=== PATIENT | female | born 2000 | race Caucasian/White ===

== ENCOUNTER 2018-07-29 19:05 | Emergency (ER) | payer OTHER ==
[~2018-07-29] VITALS: Ht 165.1 cm; Wt 53.5 kg
[~2018-07-29 19:05] MED LIST: AUGMENTIN ES-6050 ML PO; CLARITIN5 MG/5 ML PO
== END 2018-07-29 19:56 | disposition home or self-care (01) ==
LOC: ED 19:05
DX: R59.1 Generalized enlarged lymph nodes (principal)

== ENCOUNTER 2018-07-29 22:27 | Emergency (ER) | payer OTHER | END 2018-07-29 23:20 | disposition home or self-care (01) | LOC: ED 22:27 | DX: R59.1 Generalized enlarged lymph nodes (principal) ==

== ENCOUNTER 2023-01-09 19:50 | Emergency (ER) | payer OTHER ==
[~2023-01-09] VITALS: Ht 165.1 cm; Wt 46.0 kg
[2023-01-09] MEDS ORDERED: AMOX-CLAV 875-1 EACH PO (21:16)
== END 2023-01-09 21:48 | disposition home or self-care (01) ==
LOC: ED 19:50
DX: K04.7 Periapical abscess without sinus (principal)

== ENCOUNTER 2023-09-03 12:42 | Emergency (ER) | payer SELFPAY ==
[~2023-09-03] VITALS: Ht 165.1 cm; Wt 48.5 kg
[~2023-09-03 12:42] MED LIST changes: +AMOX-CLAV 875-1 EACH PO
[2023-09-03] MEDS ORDERED: Ondansetron Hydrochloride 4 MG/2 ML VIAL IV ONE (13:00)
[2023-09-03] MEDS ORDERED: SODIUM CHLORIDE 0.9% 1,000 ML IV ONE (13:00)
[2023-09-03 13:20] LABS: HEMATOCRIT 40.9 % (37.0-47.0); MEAN CELL VOLUME 90.7 fl (81.0-99.0); MEAN CORPUSCULAR HGB 30.8 pg (27.0-31.0); MEAN PLATELET VOLUME 9.9 fl (9.6-12.3); PLATELET COUNT AUTOMATED 342 10*3/uL (130-400); RED BLOOD COUNT 4.51 10*6/uL (4.10-5.10); RED CELL DISTRI WIDTH 12.7 % (0-14.5); WHITE BLOOD COUNT 16.2 10*3/uL (4.8-10.8)
[2023-09-03 13:21] LABS: MANUAL DIFF REFLEX YES
[2023-09-03] MEDS ORDERED: IOHEXOL 300 MG/ML 100 ML VIAL ONE (13:36)
[2023-09-03 13:40] LABS: PLATELET SUFFICIENCY NORMAL (NORMAL); TOTAL CELLS COUNTED 100 #CELLS; VACUOLATION OF NEUTROPHILS SLIGHT
[2023-09-03 13:46] LABS: BILIRUBIN Negative (Negative); BLOOD 2+ (Negative); CLARITY Clear (Clear); COLOR Yellow (Yellow); GLUCOSE Negative (Negative); KETONE 3+ (Negative); LEUKO ESTERASE Negative (Negative); NITRITE Negative (Negative); PH 5.5 (4.5-8.0); SPECIFIC GRAVITY >= 1.030 (1.001-1.030)
[2023-09-03 13:48] LABS: ALKALINE PHOSPHATASE 56 U/L (46-116); BUN 15 mg/dl (9-23); CHLORIDE 100 mmol/L (98-107); LIPASE 35 U/L (12-53); POTASSIUM 3.9 mmol/L (3.4-5.1); SGPT/ALT 23 U/L (5-49); TOTAL PROTEIN 8.6 gm/dL (6.0-8.0)
[2023-09-03] MEDS ORDERED: IOHEXOL 300 MG/ML 100 ML VIAL IV ONE (13:50)
[2023-09-03 14:09] LABS: BACTERIA TRACE; EPITHELIAL CELLS 16-20; MUCOUS 1+
[2023-09-03] MEDS ORDERED: ONDANSETRON4 MG SL (15:35)
== END 2023-09-03 15:38 | disposition home or self-care (01) ==
LOC: ED 12:42
PROVIDERS: Physician Assistant Medical
DX: A08.4 Viral intestinal infection, unspecified (principal); Z20.822 Contact with and (suspected) exposure to COVID-19; R11.2 Nausea with vomiting, unspecified; R19.7 Diarrhea, unspecified

== ENCOUNTER 2024-07-23 12:27 | Emergency (ER) | payer BC, MEDICAID ==
[~2024-07-23] VITALS: Ht 165.1 cm; Wt 53.1 kg
[~2024-07-23 12:27] MED LIST changes: +ONDANSETRON4 MG SL
[2024-07-23] MEDS ORDERED: Ondansetron Hydrochloride 4 MG/2 ML VIAL IV ONE (12:50)
[2024-07-23] MEDS ORDERED: SODIUM CHLORIDE 0.9% 1,000 ML IV ONE (12:50)
[2024-07-23 13:00] LABS: BASO % 0.6 % (0.0-1.0); EOS % 0.1 % (1.0-4.0); HEMATOCRIT 40.5 % (37.0-47.0); MEAN CORPUSCULAR HGB 30.9 pg (27.0-31.0); MEAN CORPUSCULAR HGB CONC 35.1 g/dl (33.0-37.0); MEAN PLATELET VOLUME 9.7 fl (9.6-12.3); MONO # 0.5 10*3/uL (0.1-1.0); MONO % 6.9 % (3.0-9.0); NEUT # 5.4 10*3/uL (2.3-7.9); NEUT % 80.3 % (47.0-73.0); PLATELET COUNT AUTOMATED 333 10*3/uL (130-400); RED CELL DISTRI WIDTH 12.4 % (0-14.5); WHITE BLOOD COUNT 6.8 10*3/uL (4.8-10.8)
[2024-07-23 13:23] LABS: ALKALINE PHOSPHATASE 49 U/L (46-116); BUN 13 mg/dl (9-23); CHLORIDE 98 mmol/L (98-107); LIPASE 39 U/L (12-53); SGPT/ALT 81 U/L (5-49); TOTAL PROTEIN 8.4 gm/dL (6.0-8.0)
[2024-07-23 13:25] LABS: POTASSIUM 2.4 mmol/L (3.4-5.1)
[2024-07-23] MEDS ORDERED: POTASSIUM CHLORIDE 20 MEQ TAB PO ONE (13:30)
[2024-07-23] MEDS ORDERED: POTASSIUM CHLORIDE IN WATER 100 ML IV SCH (14:00)
[2024-07-23 14:12] LABS: BILIRUBIN Negative (Negative); BLOOD 2+ (Negative); CLARITY Clear (Clear); COLOR Dark Yellow (Yellow); GLUCOSE Negative (Negative); KETONE 2+ (Negative); LEUKO ESTERASE Trace (Negative); NITRITE Negative (Negative); SPECIFIC GRAVITY >= 1.030 (1.001-1.030)
[2024-07-23 14:37] LABS: BACTERIA 1+; MUCOUS 2+
[2024-07-23] MEDS ORDERED: CIPRO500 MG PO (15:39)
[2024-07-23] MEDS ORDERED: Ondansetron4 MG PO (15:39)
[2024-07-23] MEDS ORDERED: SODIUM CHLORIDE 0.9% 500 ML IV ONE (15:40)
== END 2024-07-23 17:33 | disposition home or self-care (01) ==
LOC: ED 12:27
PROVIDERS: Physician Assistant Medical
DX: K52.9 Noninfective gastroenteritis and colitis, unspecified (principal); Z20.822 Contact with and (suspected) exposure to COVID-19; E87.6 Hypokalemia; R11.2 Nausea with vomiting, unspecified; Z79.899 Other long term (current) drug therapy

== ENCOUNTER 2024-08-22 15:30 | Emergency (ER) | payer BC ==
[~2024-08-22] VITALS: Ht 165.1 cm; Wt 54.4 kg
[~2024-08-22 15:30] MED LIST changes: +CIPRO500 MG PO; +Ondansetron4 MG PO
[2024-08-22] MEDS ORDERED: diphenhydrAMINE hydrochloride 50 MG/ML VIAL IV ONE (15:35)
[2024-08-22] MEDS ORDERED: Metoclopramide Hydrochloride 10 MG/2 ML VIAL IV ONE (15:35)
[2024-08-22] MEDS ORDERED: FAMOTIDINE 50 ML IV ONE (15:35)
[2024-08-22] MEDS ORDERED: SODIUM CHLORIDE 0.9% 1,000 ML IV ONE (15:35)
[2024-08-22 15:49] LABS: HEMATOCRIT 39.2 % (37.0-47.0); MEAN CELL VOLUME 89.1 fl (81.0-99.0); MEAN CORPUSCULAR HGB 30.7 pg (27.0-31.0); MEAN CORPUSCULAR HGB CONC 34.4 g/dl (33.0-37.0); MEAN PLATELET VOLUME 9.9 fl (9.6-12.3); PLATELET COUNT AUTOMATED 297 10*3/uL (130-400); RED CELL DISTRI WIDTH 12.9 % (0-14.5); WHITE BLOOD COUNT 8.8 10*3/uL (4.8-10.8)
[2024-08-22 15:51] LABS: MANUAL DIFF REFLEX YES
[2024-08-22 16:13] LABS: TOTAL CELLS COUNTED 100 #CELLS
[2024-08-22 16:14] LABS: PLATELET SUFFICIENCY NORMAL (NORMAL)
[2024-08-22 16:15] LABS: BILIRUBIN Negative (Negative); BLOOD 2+ (Negative); CLARITY Clear (Clear); COLOR Dark Yellow (Yellow); GLUCOSE Negative (Negative); KETONE 4+ (Negative); LEUKO ESTERASE 1+ (Negative); NITRITE Negative (Negative); PH 6.5 (4.5-8.0); SPECIFIC GRAVITY >= 1.030 (1.001-1.030)
[2024-08-22 16:17] LABS: BUN 12 mg/dl (9-23); CHLORIDE 101 mmol/L (98-107); POTASSIUM 3.5 mmol/L (3.4-5.1)
[2024-08-22 16:24] LABS: B-hCG (QUALITATIVE) NEGATIVE (NEGATIVE)
[2024-08-22 16:28] LABS: BACTERIA 1+; MUCOUS 2+
[2024-08-22] MEDS ORDERED: cefTRIAXone Sodium 1 GM/10 ML SYR IV ONE (16:35)
[2024-08-23] MEDS ORDERED: Ondansetron4 MG PO (08:16)
[2024-08-23] MEDS ORDERED: CIPRO500 MG PO (08:16)
== END 2024-08-22 16:57 | disposition home or self-care (01) ==
LOC: ED 15:30
PROVIDERS: Emergency Medicine
DX: N39.0 Urinary tract infection, site not specified (principal); R11.2 Nausea with vomiting, unspecified; Z79.899 Other long term (current) drug therapy; Z79.2 Long term (current) use of antibiotics